=== PATIENT | male | born 1970 | race African-American/Black ===

== ENCOUNTER 2021-10-24 07:50 | Emergency (ER) | payer MEDICAID ==
[~2021-10-24] VITALS: Ht 167.6 cm; Wt 77.0 kg
[2021-10-24] MEDS ORDERED: OXYCODONE HCL/ACETAMINOPHEN 5/325MG TABLET PO ONE (08:45)
[2021-10-24 09:09] VITALS: BP 162/87
[2021-10-24] MEDS ORDERED: HYDR-4001 MT (09:35)
== END 2021-10-24 10:04 | disposition home or self-care (01) ==
LOC: ER 08:09
DX: S82.14 Bicondylar fracture of tibia (principal); Z88.0 Allergy status to penicillin; X58.XXXA Exposure to other specified factors, initial encounter; Y93.89 Activity, other specified; Y92.89 Other specified places as the place of occurrence of the external cause; Y99.8 Other external cause status
CPT/HCPCS: 73562; 99283; L1830